=== PATIENT | male | born 1960 | race Caucasian/White ===

== ENCOUNTER → 2021-05-06 | Outpatient (CLI) | payer BC ==
--- NOTE | 2021-05-06 15:51 | RAD ---
EXAM: LOWER EXTREMITY ARTERIAL DOPPLER SONOGRAM WITH ANKLE-BRACHIAL INDICES (PRITI). HISTORY: Peripheral vascular disease, left lower surely arterial stenting. TECHNIQUE: Grayscale and Doppler sonographic evaluation of the lower extremities was performed and pr essure readings were assessed. FINDINGS: Right brachial pressure: 130 mmHg Left brachial pressure: 126 mmHg Right ankle pressure: 119 mmHg Right ankle PRITI: 0.91 Left ankle pressure: 116 mmHg Left ankle PRITI: 0.89 IMPRESSION: 1. Mildly decreased ankle-brachial indices bilaterally. Electronically signed by: Ludwig Casarez MD (05/06/2021 3:49 PM) [id number]
== END ==
LOC: US 14:18
PROVIDERS: ATTEND Family Medicine
DX: R94.39 Abnormal result of other cardiovascular function study (principal); I73.9 Peripheral vascular disease, unspecified
CPT/HCPCS: 93922

== ENCOUNTER → 2021-05-16 | Outpatient (CLI) | payer BC ==
--- NOTE | 2021-05-17 09:40 | KCIC ---
Bilateral lower extremity arterial duplex ultrasound study without comparison for abnormal ABIs, bobbi pheral vascular disease. History of left leg stent. Technique and findings: Real-time grayscale and color spectral Doppler evaluation of the arteries of lower extremities is performed. The right common femoral, deep femoral, and proximal and mid superfic ial femoral arteries are patent with normal velocities and waveforms. Within the distal right SFA, th ere is bulky soft atherosclerosis, with no hemodynamically significant stenosis and preservation of t riphasic flow. Bulky soft atherosclerosis seen in the popliteal artery as well, resulting in severe s tenosis with spectral broadening, preservation of triphasic flow, and elevation peak systolic velocit y of 274 cm/s. There is also high-grade stenosis within the proximal right peroneal artery with veloc ities of 277 cm/s. There is hyperdynamic monophasic flow within the posterior tibial, anterior tibial and dorsalis pedis arteries as well. On the left, the common femoral artery is turbulent but triphas ic, with some soft atherosclerotic plaque. Deep femoral artery is patent. There is monophasic flow wi thin the mid and distal left femoral arteries, and there is occlusion of the [place] popliteal artery, with reconstituted monophasic flow within the peroneal, anterior tibial, posterior tibial, and dorsa lis pedis arteries. There is a femoropopliteal saphenous bypass graft, which is patent throughout its entirety, however there is turbulent monophasic flow throughout the entirety of this graft is well, suggesting significant flow limitation distal anastomosis patent, though it is unclear from these gosia ges the relationship between the distal anastomosis and the popliteal artery occlusion. IMPRESSION: 1. Hemodynamically significant stenoses within the right popliteal and peroneal arteries. Patent but diseased three-vessel runoff on the right. 2. Occlusion of the [place] left popliteal artery with patent but heavily diseased and popliteal bypas s graft. Appearance suggests decreased inflow perhaps from iliofemoral disease or proximal anastomoti c stenosis. 3. Triphasic flow through patent three-vessel runoff on the left. This patient could likely benefit from angiography and attempted endovascular reconstruction by an en dovascular specialist. If so desired, we would be happy to see him in our IR clinic in this regard. R eferral can be made by faxing written order to [phone]. Electronically signed by: Demarcus Mcnair MD (05/17/2021 9:37 AM) [id number]
== END ==
LOC: KCIC US 13:59
PROVIDERS: ATTEND Family Medicine
DX: I70.203 Unspecified atherosclerosis of native arteries of extremities, bilateral legs (principal)
CPT/HCPCS: 93925

== ENCOUNTER → 2021-05-29 | Outpatient (CLI) | payer BC ==
[~2021-05-29] MED LIST: DULO20CA PO; IOHEXOL 300 MG/ML 100ML VIAL. IV ONE
--- NOTE | 2021-05-29 18:02 | KCIC ---
STUDY: CTA AORTA/RUNOFF W/WO +POST INDICATION: Nonpressure chronic ulcer. History of left leg stent placement. COMPARISON: Correlation is made to a lower extremity duplex ultrasound from 05/16/2021 TECHNIQUE: CT angiography of the abdomen, pelvis and lower extremities with obtainment of multiplanar 3D MIP reconstructions per run-off protocol. Administration of 100 cc Omnipaque 300 intravenous cont rast. One or more of the following individualized dose reduction techniques were utilized for this examinat ion: 1. Automated exposure control 2. Adjustment of the mA and/or kV according to patient size 3. Use of iterative reconstruction technique. FINDINGS: VASCULATURE: Patent great vessel origins. No aneurysm or dissection of the thoracic aorta. There appears to be belia cific coronary artery disease along the expected course of the LAD noting motion. Variant anatomy with a separate aortic branch adjacent to the celiac trunk giving rise to the left ga stric and left hepatic arteries. The celiac trunk gives rise to the splenic artery and right hepatic artery. Patent ostia. Unremarkable SMA. Unremarkable left renal artery. Small caliber of the right re nal artery but patent. The ROSEANN is patent. Scattered calcified and noncalcified atheromatous plaque of the abdominal aorta. No aneurysm or dissection. Right common iliac: Mild plaque without stenosis. Right external iliac: Patent. Right internal iliac: Patent. Right DATA INTEGRATION DEVELOPER: Patent. Left common iliac: Patent. A thin band of low attenuation traverses the lumen at the expected locatio n of the common/external iliac junction, image 191 series 4, possibly a short segment dissection with out significant stenosis. Left external iliac: Patent. Left internal iliac: Unusual anatomy with no typical internal iliac artery arising from the common fe moral artery. Instead there is a prominent lumbar artery arising from the posterior margin of the dis nupur abdominal aorta which continues downward to supply branches in the internal iliac artery. Left DATA INTEGRATION DEVELOPER: Noncalcified atheromatous plaque along its posterior wall with less than 50 percent stenosi s. Right lower extremity: Superficial femoral artery: Patent. Deep femoral artery: Patent. Popliteal artery: Luminal irregularity becoming apparent at the upper margin of the intercondylar not ch and continuing down to the joint line with mild and moderate luminal stenosis but borderline flow- limiting along a short segment at the intercondylar notch such as seen on image 465 series 4. More di stally the popliteal artery is patent. Tibioperoneal trunk: Patent. SOFTWARE SALES MANAGER: Maintained opacification through the ankle. LEONARDO: Maintained opacification to the ankle. Peroneal artery: Maintained opacification past the ankle. Ankle/foot: Predominantly two vessel runoff provided by the SOFTWARE SALES MANAGER more so than peroneal arteries. Left lower extremity: Superficial femoral artery: Status post femoral and popliteal artery bypass. The [place] femoral arter y remains opacified down to the adductor hiatus where it then divides into muscular and periarticular branches. The bypass is patent throughout and increases in caliber up until the anastomosis at the p roximal tibia. Luminal ectasia at and just distal to the anastomosis. Presumably there is a separate bypass located more medially that is chronically occluded. Deep femoral artery: Patent. Popliteal artery: Only the far distal aspect is visualized in the setting of bypass. Stenosis is mild to borderline moderate. Tibioperoneal trunk: Patent with mild stenosis. SOFTWARE SALES MANAGER: Maintained opacification past the ankle. LEONARDO: Appears to be moderately stenotic at its most proximal aspect but opacification is maintained ju st above the ankle. Peroneal artery: Small in caliber but with maintained opacification at the ankle. Ankle/foot: The most notable runoff past the ankle is provided by the posterior tibial artery but the re is faint opacification of the peroneal artery. NONVASCULAR: Mild paraseptal emphysema. No suspicious lung nodule. Tiny focus of low attenuation within the left hepatic lobe, image 112 series 4, too small to characte rize but statistically most likely benign. Unremarkable gallbladder A few punctate pancreatic calcifications. The spleen is within normal limits for size. No adrenal gla nd mass. Small size of the right kidney with several areas of cortical scarring from previous infarct s. No hydronephrosis. Mild circumferential wall thickening of the urinary bladder. Mildly enlarged pr ostate. Moderate constipation. Within normal limits small bowel and stomach. No significant lymph node enlargement. No free fluid or pneumoperitoneum. Scattered chronic/degenerat brady osseous findings. Sigmoid curvature the visualized spine. High density focus at the upper sacral canal. There is a component of lower lumbar central canal and neural foraminal stenosis which is not fully characterized. Mild arthrosis at the hips. Scattered fatty infiltration of the leg musculature. Medial compartment joint space narrowing on the right more so than left. The reported chronic left lateral ankle ulcer is difficult to appreciate. IMPRESSION: VASCULATURE: 1. Status post femoropopliteal bypass on the left. The bypass graft is patent. Intermittent mild and moderate stenoses of the popliteal artery beyond the anastomosis, tibioperoneal trunk and proximal a spect of the anterior tibial artery. Mostly single vessel runoff past the ankle provided by the poste rior tibial artery but the peroneal artery is faintly visualized past the ankle as well. Loss of visu alization of the anterior tibial artery just above the ankle. No hemodynamically significant inflow s tenosis of the left common/external iliac arteries or the common femoral artery. 2. On the right, no significant stenosis from the common iliac artery through the superficial femora l artery. Predominately noncalcified atheromatous plaque of the popliteal artery with intermittent mi ld and moderate stenoses at the level of the distal femur but there is a short segment of borderline flow-limiting stenosis, around 75%, at the the level of the intercondylar notch (image 465 series 4). No hemodynamically significant stenosis more distally with mainly two-vessel runoff past the ankle b y the SOFTWARE SALES MANAGER and peroneal artery. The anterior tibial artery becomes difficult to visualize just above t he ankle. 3. Possible short segment dissection at the left common/external iliac artery junction without resul tant stenosis. 4. Variant anatomy with the left internal iliac artery branches supplied by a lumbar artery arising just above the aortic bifurcation. Variant celiac anatomy as well. No flow-limiting stenosis of the a ortic branch vessels. Scattered calcified and noncalcified atheromatous plaque. NONVASCULAR FINDINGS: 1. 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 No findin gs to indicate a recent infarct. 2. Advanced degenerative changes at the lower lumbar spine with incompletely characterized foraminal and central canal stenosis. Background sigmoid curvature. 3. Moderate constipation. Electronically signed by: ARYAN WINTER MD (05/29/2021 6:00 PM) [facility]
== END ==
LOC: KCIC CT 15:20
PROVIDERS: ATTEND Family Medicine
DX: L97.929 Non-pressure chronic ulcer of unspecified part of left lower leg with unspecified severity (principal); J43.9 Emphysema, unspecified; K86.89 Other specified diseases of pancreas; N40.0 Benign prostatic hyperplasia without lower urinary tract symptoms; K59.00 Constipation, unspecified; M16.0 Bilateral primary osteoarthritis of hip; M48.061 Spinal stenosis, lumbar region without neurogenic claudication; N26.1 Atrophy of kidney (terminal)
CPT/HCPCS: 75635; Q9967